=== PATIENT | female | born 1960 | race American Indian/Alaskan Native ===

== ENCOUNTER 2017-12-01 07:50 | Day surgery (SDC) | payer MEDICARE, OTHER ==
[~2017-12-01 07:50] MED LIST: ANCEF/STERILE WATER 2 GM/20 ML 2 GM/20 ML SYRINGE IV NR; OMNIPAQUE 300 MG/50 ML (CATH LAB) IV ONE; WATER FOR IRRIG STERILE IR ONE
[2017-12-01] MEDS ORDERED: ANCEF/STERILE WATER 2 GM/20 ML 2 GM/20 ML SYRINGE IV NR (09:00)
--- NOTE | 2017-12-01 09:27 | Anesthesia Consultation ---
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
[2017-12-01] MEDS ORDERED: DILAUDID IV PRN (09:38)
[2017-12-01] MEDS ORDERED: ZOFRAN IV PRN (09:38)
--- NOTE | 2017-12-01 09:38 | Anesthesia Day of Surgery ---
Anesthesia Day of Surgery - Day of Surgery Patient Examined: Yes Patient H&P Reviewed: Yes Patient is NPO: Yes
[2017-12-01] MEDS ORDERED: NACL 0.9% 1000 ML 1,000 ML IV SCH (10:00)
[2017-12-01] MEDS ORDERED: VERSED IV NR (10:00)
[2017-12-01] MEDS ORDERED: PEPCID IV NR (10:00)
[2017-12-01] MEDS ORDERED: XYLOCAINE MPF 2% ONE (11:00)
[2017-12-01] MEDS ORDERED: ZOFRAN ONE (11:00)
[2017-12-01] MEDS ORDERED: DIPRIVAN 10 MG/ML IV ONE (11:18)
[2017-12-01] MEDS ORDERED: OMNIPAQUE 300 MG/50 ML (CATH LAB) IV ONE (11:34)
[2017-12-01] MEDS ORDERED: WATER FOR IRRIG STERILE IR ONE (11:34)
[2017-12-01] MEDS ORDERED: DILAUDID ONE ×2 (11:42→13:01)
--- NOTE | 2017-12-01 12:28 | Post Operative Note ---
Date of procedure: 12/01/17 Pre-op diagnosis: hematuria Post-op diagnosis: other (stenosis) Findings: stenosis Procedure: cysyo bx rpg dil Anesthesia: GETA Surgeon: EVELINE REYNAGA Estimated blood loss: minimal Pathology: list Specimen disposition: to lab (bladder ) Condition: stable Disposition: PACU
--- NOTE | 2017-12-01 12:30 | Discharge Summary ---
Short Stay Discharge Plan Activity: other (no straining ) Weight Bearing Status: Full Weight Bearing Diet: regular, low fat, low salt Special Instructions: other (void x 2 prior to d/c ) Durable Medical Equipment Needed Upon Discharge: other (remove yanez on rr if clear ) Follow up with: ELISHA VILLATORO PA [Primary Care Provider] - 7 Days EVELINE REYNAGA MD [Staff Physician] - 14 Days
--- NOTE | 2017-12-01 13:02 | Operative Report ---
PREOPERATIVE DIAGNOSIS: Hematuria. POSTOPERATIVE DIAGNOSIS: Significant meatal stenosis. PROCEDURE: Urethral dilatation, random bladder biopsy, retrograde. SURGEON: Kelechi Nixon MD ANESTHESIA: General. FINDINGS: This is a woman who had hematuria. CT showed no acute processes, now presents for cystoscopy. DESCRIPTION OF PROCEDURE: The patient was brought to the operating room and placed on the operating table. Following induction of anesthesia, she was placed in lithotomy position, prepped and draped in usual sterile fashion. Cystourethroscopy, we could not get in the bladder as ureter was so narrow. With that dilatation, there was some oozing at the 6 o'clock position. Bladder was entered and small random biopsies were taken. Retrograde showed good filling, good drainage with no persistent filling defects. The patient tolerated the procedure well. There was a small area at 6 o'clock position of the urethra, which was cauterized just superficially, and was dilated. A catheter was left and will be removed before discharge. The patient tolerated the procedure well and brought to recovery in stable condition. JOB# [id number] PILO/KP
[2017-12-01 13:36] VITALS: BP 149/90
--- NOTE | 2017-12-02 07:35 | Fluoroscopy Report ---
FLUOROSCOPY RETROGRADE UROGRAPHY: HISTORY: Hematuria. FINDINGS: Fluoroscopy was provided by radiology during retrograde urography by the urologist. 9 fluoroscopic images were captured. There is adequate filling of the ureters and intrarenal collecting systems with no filling defects or anatomic abnormalities identified. Please correlate with the procedural report if needed. IMPRESSION: Retrograde pyelograms within normal limits.
== END 2017-12-01 14:07 | disposition home or self-care (01) ==
LOC: OR 07:50
PROVIDERS: ATTEND Urology
DX: N30.21 Other chronic cystitis with hematuria (principal); N35.9 Urethral stricture, unspecified; I10 Essential (primary) hypertension; G43.909 Migraine, unspecified, not intractable, without status migrainosus; F17.290 Nicotine dependence, other tobacco product, uncomplicated
CPT/HCPCS: 36415; 52204; 74420; 84132; 88305; A4217; C1758; J0690; J1170; J2250; J2405; J2704; J7030; Q9967